=== PATIENT | male | born 1960 | race African-American/Black ===

== ENCOUNTER 2017-09-08 17:04 | Emergency (ER) | payer OTHER ==
[~2017-09-08] VITALS: Ht 177.8 cm; Wt 108.9 kg
[2017-09-08 17:04] VITALS: BP 160/88
[2017-09-08] MEDS ORDERED: NORCO 5-325 TA1 EACH PO (18:25)
== END 2017-09-08 18:28 | disposition home or self-care (01) ==
LOC: ER 17:04
DX: S93.401A Sprain of unspecified ligament of right ankle, initial encounter (principal); M19.071 Primary osteoarthritis, right ankle and foot; M25.561 Pain in right knee; M54.9 Dorsalgia, unspecified; G89.29 Other chronic pain; I10 Essential (primary) hypertension; Z88.0 Allergy status to penicillin; X58.XXXA Exposure to other specified factors, initial encounter; Y92.89 Other specified places as the place of occurrence of the external cause; Y93.89 Activity, other specified; Y99.8 Other external cause status